=== PATIENT | female | born 1985 | race Caucasian/White ===

== ENCOUNTER → 2017-05-11 | Outpatient (CLI) | payer BC | END | disposition home or self-care (01) | LOC: LABWHC1 09:35 | PROVIDERS: ATTEND Internal Medicine Endocrinology, Diabetes & Metabolism | DX: E03.8 Other specified hypothyroidism (principal) | CPT/HCPCS: 36415; 84443 ==

== ENCOUNTER → 2017-09-08 | Outpatient (CLI) | payer BC ==
--- NOTE | 2017-09-08 09:50 | USB ---
Reason for exam: clinical finding. Indicated problem(s): lump or thickening in the right breast. Physical Findings: Nurse Summary: 1cm superficial nodule right breast 5 o'clock (nurse mj). US Breast RT Right breast ultrasound includes all four quadrants, the retroareolar region and axilla. Finding demonstrates a 13 x 8 x 4mm solid, hypoechoic, superficial, vascular lesion at 6 o'clock. Maybe post traumatic. Early infection not excluded. Follow up in 2 weeks. These results were verbally communicated with the patient and result sheet given to the patient on 09/08/17. ASSESSMENT: Probably benign, BI-RAD 3 RECOMMENDATION: Ultrasound of the right breast in 1 month. (2 weeks) Manage patient on a clinical basis.
== END | disposition home or self-care (01) ==
LOC: RADUSWWP 08:50
PROVIDERS: ATTEND Surgery
DX: N63.10 Unspecified lump in the right breast, unspecified quadrant (principal)

== ENCOUNTER 2017-09-28 08:16 | Inpatient (IN) | payer BC ==
[2017-09-28] MEDS ORDERED: ceFAZolin IN SWFI 2 GM/20 ML SYRINGE IVP ONE (08:37)
[2017-09-28] MEDS ORDERED: CITRIC ACID-SODIUM CITRATE 15 ML CUP PO ONE (08:37)
[2017-09-28] MEDS: LACTATED RINGERS 1,000 ML IV SCH ×2 (08:59→13:21)
[2017-09-28 09:10] LABS: Glucose,Whole Blood 80 mg/dL (75-99)
[2017-09-28 09:15] LABS: Basophils % (A) 0 %; Eosinophils # (A) 0.1 k/uL (0-0.7); Eosinophils % (A) 1 %; HCT 38.1 % (34.0-46.0); HGB 13.1 gm/dL (11.4-16.0); Lymphocytes # (A) 1.9 k/uL (1.0-4.8); Lymphocytes % (A) 21 %; MCH 30.1 pg (25.0-35.0); MCHC 34.4 g/dL (31.0-37.0); MCV 87.6 fL (80.0-100.0); Mean Platelet Volume 8.4; Monocytes # (A) 0.6 k/uL (0-1.0); Monocytes % (A) 7 %; Neutrophils % (A) 69 %; Platelet Count 169 k/uL (150-450); RBC 4.35 m/uL (3.80-5.40); WBC 8.8 k/uL (3.8-10.6)
[2017-09-28 09:17] VITALS: BMI 34.2
[2017-09-28] MEDS ORDERED: NALBUPHINE 10 MG/ML AMPUL ONE (09:56)
[2017-09-28] MEDS ORDERED: OXYTOCIN 10 UNIT/ML 1 ML VIAL ONE (09:56)
[2017-09-28] MEDS ORDERED: ONDANSETRON 4 MG/2 ML VIAL ONE (09:56)
[2017-09-28] MEDS ORDERED: MORPHINE SULFATE (PF) 0.3 MG/0.3 ML SYR ONE (09:56)
[2017-09-28] MEDS ORDERED: ePHEDrine SULFATE/0.9% NACL/PF 50 MG/5 ML SYRINGE IV ONE (09:56)
--- NOTE | 2017-09-28 10:00 | P.HPOB ---
History of Present Illness H&P Date: 09/28/17 This is a 32-year-old white female 3 para 2001 EDC 10/04/2017 at 39 and one sevenths weeks' gestation. Patient presents today for repeat low transverse section and tubal ligation. Fetus is been active throughout the . She denies uterine contractions or vaginal bleeding. Past medical history is significant for hypothyroidism. Current medications Synthroid 25 MCG's daily, vitamin daily. Past surgical history section 2008, 2011. Sinus surgery and tympanic tubes placed in the ears, adenoidectomy. ALLERGIES none known. Family history is significant for hypertension. Social history patient is , she works with the [employer], she has never been a smoker, she denies alcohol or drug use. Obstetric history is significant for gestational diabetes, on insulin. Blood sugar this morning 80. Blood type O+, rubella status immune. VDRL testing, hepatitis B surface antigen, HIV testing, gonorrhea and chlamydia cultures, Pap smear, urine culture negative. Group B strep cultures negative. On exam this is a pleasant white female, 5 foot 6 inches, 212 pounds, blood pressure 128/83 on admission, patient is afebrile. The general physical exam is within normal limits. The chest is clear in all bales. Extremities reveal no edema. The abdomen is obvious E gravid, 39 cm fundal height. Infant is vertex to Alirio's maneuvers. heart rate consistent with reactive NST. Impression: 39 and one sevenths weeks intrauterine , here for repeat section, tubal ligation, and cord blood collection. Plan: For repeat low transverse section and tubal ligation. All risks benefits and alternatives of the surgery have been reviewed in detail. Review of Systems Negative except as in HPI. Constitutional: Reports as per HPI Past Medical History Past Medical History: GERD/Reflux, Thyroid Disorder Additional Past Medical History / Comment(s): DYSPHAGIA, Gestational Diabetes History of Any Multi-Drug Resistant Organisms: None Reported Past Surgical History: Adenoidectomy, Section Additional Past Surgical History / Comment(s): SINUS SX Past Anesthesia/Blood Transfusion Reactions: Postoperative Nausea & Vomiting ( PONV) Past Psychological History: No Psychological Hx Reported Smoking Status: Never smoker Past Alcohol Use History: Occasional Past Drug Use History: None Reported - Past Family History Brother(s) Family Medical History: Cancer Father Family Medical History: Hypertension Medications and Allergies Home Medications Medication Instructions Recorded Confirmed Type Pnv,Calcium 72/Iron/Folic Acid 1 tab PO DAILY 04/01/17 09/28/17 History [ Plus Tablet] Insulin Aspart [NovoLOG] 0 units SQ ACHS 09/28/17 09/28/17 History Insulin Detemir [Levemir] 14 unit SQ HS 09/28/17 09/28/17 History Allergies Allergy/AdvReac Type Severity Reaction Status Date / Time No Known Allergies Allergy Verified 09/28/17 08:30 Exam - Vital Signs Vital signs: Vital Signs Temp Pulse Resp BP 09/28/17 08:22 97.1 F L 91 18 128/83 Intake and Output 09/27/17 09/28/17 09/28/17 22:59 06:59 14:59 Other: Weight 96.162 kg Patient Weight 09/29/17 06:59 Weight 96.162 kg See dictation under HPI, please. Results Result Diagrams: 09/28/17 08:55 Assessment and Plan Plan: For repeat low transverse section, tubal ligation, and cord blood collection. All risks benefits and alternatives of the procedure have been discussed in detail. Blood sugar on admission 80. Time with Patient: Less than 30
[2017-09-28] MEDS ORDERED: diphenhydrAMINE 50 MG CAP PO PRN (10:50)
[2017-09-28] MEDS ORDERED: Acetaminophen-Codeine 300-30mg TAB PO PRN (10:50)
[2017-09-28] MEDS ORDERED: ZOLPIDEM 5 MG TAB PO PRN (10:50)
[2017-09-28] MEDS ORDERED: ONDANSETRON 4 MG/2 ML VIAL IVP PRN (10:50)
[2017-09-28] MEDS ORDERED: NALOXONE 0.4 MG/ML 1 ML VIAL IV PRN (10:50)
[2017-09-28] MEDS ORDERED: diphenhydrAMINE 25 MG CAP PO PRN (10:50)
[2017-09-28] MEDS ORDERED: ACETAMINOPHEN TAB 325 MG TAB PO PRN (10:50)
[2017-09-28] MEDS ORDERED: METOCLOPRAMIDE 5 MG/ML 2 ML VIAL IVP PRN (10:50)
[2017-09-28] MEDS ORDERED: diphenhydrAMINE 50 MG/ML 1 ML VIAL IVP PRN ×2 (10:50)
--- NOTE | 2017-09-28 10:50 | P.OP ---
Date of Procedure: 09/28/17 Preoperative Diagnosis: 39-1/7 weeks intrauterine , 2 previous C-sections declining , undesired fertility, gestational diabetes Postoperative Diagnosis: Liveborn male infant, nuchal cord 1, very thin lower uterine segment Procedure(s) Performed: Repeat low transverse section, tubal ligation, cord blood collection per commercial kit. Anesthesia: spinal Surgeon: Anitha So Fuel Cell Engineer #1: Bronwyn Burgess Estimated Blood Loss (ml): 400 IV fluids (ml): 1,000 Urine output (ml): 50 Pathology: other (Placenta) Condition: stable Disposition: PACU Operative Findings: Liveborn male , nuchal cord 1, normal appearing tubes and ovaries bilaterally. Thin lower uterine segment. Description of Procedure: Patient is brought to the [facility] and suite where a spinal analgesia is administered. She's placed in the dorsal lithotomy position with left lateral uterine displacement. Bicitra is given. Antibiotics given. Desai placed to direct drainage. The appropriate timeout is performed to assure the proper patient and procedural identification. The abdomen is prepped and draped in the usual sterile fashion. The analgesia is checked and noted to be adequate. A repeat low transverse skin incision is made in this is carried down through the subcutaneous tissue to the fascia. Subcutaneous tissue is approximate 6-8 cm deep. Fascia is isolated, scored, and extended bilaterally with curved Patel scissors. Peritoneum is next identified and incised, there is no bowel or bladder involvement. Bladder flap is created using Metzenbaum scissors and at all times the bladder is Well from the operative field. The lower uterine segment is very very thin. It is opened with a scalpel and artificial amniorrhexis reveals clear fluid. The incision is extended bluntly. The 's head is delivered occiput anterior. There is a nuchal cord 1 that is reduced. The patient is officially delivered of a liveborn male at 1014 hrs. The umbilical cord is doubly clamped and ligated, he is handed to waiting nurses for evaluation where scores of 9 and 10 at one and 5 minutes respectively are given. Cord blood was then collected per instructions of the feed crusher operator's. This is set aside. The placenta is delivered manually, it is inspected and noted to be intact with trivascular cord at 1015 hrs. The uterus is then externalized and massaged. It is swept clean with a sterile sponge to avoid any retained products of conception. The uterus is closed in a single full-thickness fashion using 0 Vicryl suture for excellent reapproximation. Patient's request for bilateral tubal ligation is once again verified. Filshie clips are used in the isthmic portions of both tubes, with care to traverse the entire diameter of the tube into the mesal salpinx. Fimbriated ends are identified for proper placement technique. Both ovaries appear normal to inspection. Abdomen is suctioned with suction on guard behind the uterus and the uterus is gently placed back into the abdominal cavity. Bilateral gutters are inspected and cleaned. The uterine incision is clean and dry, well approximated. The peritoneum was allowed to close by secondary intention. The fascia is closed in a running fashion using 0 Vicryl suture with over ligation in the midline. Subcutaneous tissue is irrigated, noted to be clean and dry. It is reapproximated with 3-0 Vicryl in a running fashion. 4 -0 undyed Monocryl is used in a subcuticular manner for final skin closure. Steri-Strips and Mastisol are applied to the wound. Desai is noted to be draining clear urine, 50 mL's. All sponge needle and enhancement counts are correct at the end of the procedure. Patient is brought back to the recovery room in very good condition with stable vital signs including a pulse of 80, blood pressure 118/59. And her are requesting circumcision further infant son.
[2017-09-28] MEDS ORDERED: LACTATED RINGERS 1,000 ML IV SCH (11:00)
[2017-09-28] MEDS: KETOROLAC 30 MG/ML 1 ML VIAL IVP PRN ×2 (11:05→16:41)
[2017-09-28 11:13] LABS: Glucose,Whole Blood 76 mg/dL (75-99)
[2017-09-28] MEDS: SENNOSIDES-DOCUSATE SODIUM 1 EACH TAB PO SCH (20:17)
[2017-09-29] MEDS: KETOROLAC 30 MG/ML 1 ML VIAL IVP PRN ×2 (04:04→11:04)
--- NOTE | 2017-09-29 06:55 | P.PN ---
Subjective Progress Note Date: 09/29/17 Slept well, minimal pain, minimal to moderate lochia rubra. No complaints. Objective - Vital Signs Vital signs: Vital Signs Temp 98.2 F 09/29/17 04:00 Pulse 55 L 09/29/17 04:00 Resp 16 09/29/17 04:00 BP 110/62 09/29/17 04:00 Pulse Ox 97 09/29/17 00:00 Intake & Output 09/28/17 09/28/17 09/29/17 06:59 18:59 06:59 Intake Total 1000 Output Total 550 300 Balance 450 -300 Weight 96.162 kg Intake: IV 1000 Output: Urine 300 300 Emesis 250 Other: # Voids 1 - Constitutional General appearance: Present: average body habitus, cooperative - EENT Eyes: Present: PERRLA ENT: Present: hearing grossly normal - Neck Neck: Present: normal ROM Thyroid: bilateral: normal size - Respiratory Respiratory: bilateral: CTA - Cardiovascular Rhythm: regular - Gastrointestinal Gastrointestinal Comment(s): Incision clean and dry, intact, Steri-Strips applied. Non-erythematous, no drainage. Fundus firm, midline, symmetric, 18 week size. General gastrointestinal: Present: normal bowel sounds - Integumentary Integumentary: Present: normal - Neurologic Neurologic: Present: CNII-XII intact - Musculoskeletal Musculoskeletal: Present: gait normal, strength equal bilaterally - Psychiatric Psychiatric: Present: A&O x's 3, appropriate affect, intact judgment & insight - Labs CBC & Chem 7: 09/28/17 08:55 Assessment and Plan Plan: Advance diet. Discontinue IV. May shower. Circumcision now. Likely discharge home tomorrow. Time with Patient: Less than 30
--- NOTE | 2017-09-29 07:40 | P.PN ---
Progress Note - Text 09/29 716am 32-year-old female status post . Postop day 1 with a VAS of 3, complain of mild facial pruritus, no nausea vomiting today. Doing well
[2017-09-29] MEDS: SENNOSIDES-DOCUSATE SODIUM 1 EACH TAB PO SCH ×2 (08:19→20:39)
[2017-09-29 08:32] LABS: Basophils % (A) 0 %; Eosinophils # (A) 0.1 k/uL (0-0.7); Eosinophils % (A) 1 %; HCT 33.1 % (34.0-46.0); HGB 11.4 gm/dL (11.4-16.0); Lymphocytes # (A) 1.6 k/uL (1.0-4.8); Lymphocytes % (A) 14 %; MCH 30.7 pg (25.0-35.0); MCHC 34.4 g/dL (31.0-37.0); MCV 89.3 fL (80.0-100.0); Mean Platelet Volume 8.3; Monocytes % (A) 8 %; Neutrophils % (A) 76 %; Platelet Count 139 k/uL (150-450); RBC 3.71 m/uL (3.80-5.40); RDW 13.9 % (11.5-15.5); WBC 11.8 k/uL (3.8-10.6)
[2017-09-29] MEDS: IBUPROFEN 600 MG TAB PO PRN ×2 (16:07→23:58)
[2017-09-29] MEDS: SIMETHICONE 80 MG CHEWABLE PO PRN (20:39)
[2017-09-29] MEDS ORDERED: SIMETHICONE 80 MG CHEWABLE PO SCH (22:00)
[2017-09-30] MEDS: SIMETHICONE 80 MG CHEWABLE PO PRN (07:53)
[2017-09-30] MEDS: IBUPROFEN 600 MG TAB PO PRN (07:53)
--- NOTE | 2017-09-30 08:00 | P.DS ---
Providers Date of admission: 09/28/17 08:16 Expected date of discharge: 09/30/17 Attending physician: Anitha So Primary care physician: [facility] Course: This is a 32-year-old white female 3 para 2002 EDC 10/04/2017 at 39 and one sevenths weeks' gestation. Patient presented for repeat low transverse section and tubal ligation. She had 2 previous sections and declined the option for . was remarkable for gestational diabetes on insulin. Admitting blood sugar 80. Group B strep cultures negative , please see my dictated history and physical for full details. Patient underwent a low-transverse section with tubal ligation utilizing Filshie clips. Estimated blood loss was 400 mL's. There was a nuchal cord 1, liveborn male infant with scores of 9 and 10 at one and 5 minutes respectively. Infant weight 3620 g or 8 lbs. 0 oz. Please see my dictated operative note for details. This morning the patient is doing well. She is voiding, ambulating, passing flatus without difficulty. Incision is clean and dry, intact with Steri-Strips applied. Fundus is firm and in the midline, symmetric, 18 week size. Extremities reveal no edema. Chest is clear in all bales. Breasts are not engorged. Breast-feeding is going well. Circumcision on the has been performed. Patient is being discharged home today in very good condition. She will follow- up with me in the office in 2 weeks for incision check. I have reminded her no intercourse, tampons or douching. She will use [id number] ibuprofen products, 200 mg pills, 3 every 6 hours as needed for pain. I've asked her to call me with any fevers shakes or chills, foul smelling or copious lochia, with any pain not alleviated by ibuprofen products, with any difficulties breathing or with any concerns. will follow-up with mathematician as recommended. Patient Condition at Discharge: Good Plan - Discharge Summary New Discharge Prescriptions: No Action Pnv,Calcium 72/Iron/Folic Acid [ Plus Tablet] 1 tab PO DAILY Insulin Detemir [Levemir] 14 unit SQ HS Insulin Aspart [NovoLOG] 0 units SQ ACHS Discharge Medication List Pnv,Calcium 72/Iron/Folic Acid [ Plus Tablet] 1 tab PO DAILY 04/01/17 [ History] Insulin Aspart [NovoLOG] 0 units SQ ACHS 09/28/17 [History] Insulin Detemir [Levemir] 14 unit SQ HS 09/28/17 [History] Follow up Appointment(s)/Referral(s): Anitha So MD [STAFF PHYSICIAN] - 2 Weeks
[2017-09-30 08:46] VITALS: BP 130/72; PULSE 70; RESP 18; TEMP 98.1
[2017-09-30] MEDS: SENNOSIDES-DOCUSATE SODIUM 1 EACH TAB PO SCH (10:05)
== END 2017-09-30 11:59 | disposition home or self-care (01) | DRG 766 ==
LOC: 4FBP 08:16
PROVIDERS: ADMIT Obstetrics & Gynecology; ATTEND Obstetrics & Gynecology
PROC: 0UL70CZ Occlusion of Bilateral Fallopian Tubes with Extraluminal Device, Open Approach (ICD-10-PCS; 2017-09-28)
PROC: 00HU33Z Insertion of Infusion Device into Spinal Canal, Percutaneous Approach (ICD-10-PCS; 2017-09-28)
PROC: 3E0R3NZ Introduction of Analgesics, Hypnotics, Sedatives into Spinal Canal, Percutaneous Approach (ICD-10-PCS; 2017-09-28)
PROC: 10D00Z1 Extraction of Products of Conception, Low, Open Approach (ICD-10-PCS; principal; 2017-09-28 10:00)
DX: O34.211 Maternal care for low transverse scar from previous cesarean delivery (principal); O24.424 Gestational diabetes mellitus in childbirth, insulin controlled; E03.9 Hypothyroidism, unspecified; O69.81X0 Labor and delivery complicated by cord around neck, without compression, not applicable or unspecified; O99.284 Endocrine, nutritional and metabolic diseases complicating childbirth; Z37.0 Single live birth; Z3A.39 39 weeks gestation of pregnancy; Z90.89 Acquired absence of other organs; Z79.899 Other long term (current) drug therapy; Z82.49 Family history of ischemic heart disease and other diseases of the circulatory system; Z80.9 Family history of malignant neoplasm, unspecified; Z79.4 Long term (current) use of insulin
CPT/HCPCS: 85025; 86850; 86900; 86901; 88307

== ENCOUNTER → 2018-02-05 | Outpatient (CLI) | payer BC ==
--- NOTE | 2018-02-08 07:25 | USB ---
Reason for exam: clinical finding. Indicated problem(s): palpable abnormality in the right breast. Physical Findings: Nurse Summary: right breast inner lower quadrant area with a stitch in a place, with small redness (nurse ts). US Breast RT Right complete breast ultrasound includes all four quadrants, the retroareolar region and axilla. Finding demonstrates a 1.5 x 1.7 x 0.4cm oval, mixed, hypoechoic lesion at 5 o'clock at location of prior ultrasound abnormality at site of recent dermatology biopsy. These results were verbally communicated with the patient and result sheet given to the patient on 02/05/18. ASSESSMENT: Probably benign, BI-RAD 3 RECOMMENDATION: Clinical management of the right breast. Manage on a clinical basis. Correlate with dermal biopsy results.
== END | disposition home or self-care (01) ==
LOC: RADUSWWP 12:55
PROVIDERS: ATTEND Obstetrics & Gynecology
DX: N60.01 Solitary cyst of right breast (principal)

== ENCOUNTER → 2018-03-03 | Outpatient (CLI) | payer BC ==
--- NOTE | 2018-03-04 07:31 | US ---
EXAMINATION TYPE: US thyroid st tissue head/neck DATE OF EXAM: 03/03/2018 COMPARISON: CT 2012 CLINICAL HISTORY: E01.0 Thyroidmeagaly. Enlarged thyroid per physician, intermittent difficultly swal lowing, off thyroid meds since August GLAND SIZE: Right Lobe: 6.8 x 3.1 x 2.8 cm Overall Parenchyma: heterogenous Left Lobe: 6.6 x 2.7 x 3.1 cm Overall Parenchyma: heterogeneous Isthmus Thickness: 1.5 cm NODULES RIGHT: # of nodules measured on right: 0 LEFT: # of nodules measured on left: 0 ISTHMUS: # of nodules measured in the isthmus: 0 Bilateral neck scanned, no evidence of lymphadenopathy. Enlarged, hypervascular and heterogeneous gland without any definite nodules seen at this time. IMPRESSION: Enlarged, hypervascular and diffusely heterogenous thyroid gland without discrete nodule. Correlate w ith serum laboratory values for thyroiditis.
== END | disposition home or self-care (01) ==
LOC: RADUSMAIN 15:50
PROVIDERS: ATTEND Family Medicine
DX: E04.9 Nontoxic goiter, unspecified (principal)
CPT/HCPCS: 76536

== ENCOUNTER → 2018-03-05 | Outpatient (CLI) | payer BC ==
[2018-03-08 13:08] LABS: Cow's Milk IgE Class CLASS 0; Egg White IgE <0.35 kU/L (<0.35); Peanut IgE <0.35 kU/L (<0.35); Potato IgE <0.35 kU/L (<0.35); Potato IgE Class CLASS 0; Soybean IgE <0.35 kU/L (<0.35)
[2018-03-08 14:17] LABS: Avocado Class CLASS 0; Banana IgE Class CLASS 0; Hazelnut IgE <0.35 kU/L (<0.35); Hazelnut IgE Class CLASS 0; Kiwi IgE <0.35 kU/L (<0.35)
[2018-03-08 15:30] LABS: Corn IgG 4.1 mcg/mL (< 2.0); Cow's Milk IgG 87.3 mcg/mL (< 2.0); Peanut IgG 9.1 mcg/mL (< 2.0); Potato IgG < 2.0 mcg/mL (< 2.0); Soybean IgG 2.7 mcg/mL (< 2.0); Tomato IgG < 2.0 mcg/mL (< 2.0); Wheat IgG 11.6 mcg/mL (< 2.0)
== END | disposition home or self-care (01) ==
LOC: LABWHC1 09:59
PROVIDERS: ATTEND Nurse Practitioner Family
DX: J30.89 Other allergic rhinitis (principal)
CPT/HCPCS: 36415; 86001; 86003

== ENCOUNTER → 2018-04-06 | Day surgery (SDC) | payer BC ==
[2018-04-02 11:32] VITALS: BMI 31.4
[~2018-04-06] MED LIST: LACTATED RINGERS 1,000 ML IV SCH; LIDOCAINE 1% 20 ML VIAL (10MG/ML) FOR IV START INTRADERMA PRN; MIDAZOLAM 2 MG/2 ML VIAL IV PRN
[2018-04-06 07:26] VITALS: RESP 16; TEMP 98.3
--- NOTE | 2018-04-06 08:00 | P.GSHP ---
History of Present Illness H&P Date: 04/06/18 Chief Complaint: GERD This is a 33-year-old female who presents today for EGD. Patient's had issues with GERD. Past Medical History Past Medical History: GERD/Reflux, Thyroid Disorder Additional Past Medical History / Comment(s): DYSPHAGIA and difficulty taking deep breaths, Gestational Diabetes,Keith's,enlarged thyroid-hypoactive,mild tricuspid valve regurg,palpitations,steroids February 2018,kidney stones February 2018 History of Any Multi-Drug Resistant Organisms: None Reported Past Surgical History: Adenoidectomy, Section Additional Past Surgical History / Comment(s): SINUS SX,c section x3 Past Anesthesia/Blood Transfusion Reactions: Postoperative Nausea & Vomiting ( PONV) Smoking Status: Never smoker - Past Family History Brother(s) Family Medical History: Cancer Father Family Medical History: Hypertension Medications and Allergies Home Medications Medication Instructions Recorded Confirmed Type Levothyroxine Sodium [Synthroid] 88 mcg PO QAM 04/02/18 04/06/18 History Pantoprazole Sodium [Protonix] 40 mg PO DAILY 04/02/18 04/06/18 History Ranitidine HCl [Zantac] 150 mg PO BID 04/02/18 04/06/18 History Allergies Allergy/AdvReac Type Severity Reaction Status Date / Time No Known Allergies Allergy Verified 04/06/18 07:08 Surgical - Exam Vital Signs Temp Pulse Resp BP Pulse Ox 98.3 F 85 16 124/85 100 04/06/18 07:24 04/06/18 07:24 04/06/18 07:24 04/06/18 07:24 04/06/18 07:24 - General well developed, no distress - Eyes PERRL - ENT normal pinna - Neck no masses - Respiratory normal expansion - Cardiovascular Rhythm: regular - Abdomen Abdomen: soft, non tender Assessment and Plan Assessment: GERD. We'll perform EGD.
--- NOTE | 2018-04-06 08:08 | P.OP ---
Date of Procedure: 04/06/18 Preoperative Diagnosis: GERD Postoperative Diagnosis: Antral gastritis Procedure(s) Performed: EGD Anesthesia: MAC Surgeon: Ho Castellon Pathology: other (Antrum) Condition: stable Disposition: PACU Description of Procedure: The patient's placed on the endoscopy table in the lateral position. She received IV sedation. The gastroscope placed oropharynx passed in the esophagus and stomach. Scope was then placed through the pylorus. First and second portion of the duodenum appeared normal. Scope was then brought back the antrum and this appeared mildly inflamed. A biopsies performed. The scope was then retroflexed and the remainder stomach appeared normal. There was no significant hiatal hernia. The GE junction was at 40 cm. The distal esophagus Appeared Normal. Scope was withdrawn for patient.
[2018-04-06 08:49] VITALS: BP 131/72; PULSE 80
--- NOTE | 2018-04-06 11:21 | NM ---
Nuclear medicine hepatobiliary scan. HISTORY: Pain. DOSAGE: The patient received 8 ounces of ensure plus and 5.14 mCi of Technetium 99m Choletec. FINDINGS: There is normal hepatic extraction. The gallbladder is seen by 15 minutes. There is bilia ry to bowel clearance by 35 minutes. Ejection fraction is 58%. IMPRESSION: 1. Normal hepatobiliary exam
== END | disposition home or self-care (01) ==
LOC: ORWHC2ENDO 06:49
PROVIDERS: ATTEND Surgery
DX: K21.9 Gastro-esophageal reflux disease without esophagitis (principal); K29.70 Gastritis, unspecified, without bleeding; E06.3 Autoimmune thyroiditis; Z79.890 Hormone replacement therapy; Z79.899 Other long term (current) drug therapy; Z82.49 Family history of ischemic heart disease and other diseases of the circulatory system; Z80.9 Family history of malignant neoplasm, unspecified
CPT/HCPCS: 43239; 81025; 88305; 78227; A9537; J2805

== ENCOUNTER → 2019-06-29 | Outpatient (CLI) | payer BC ==
--- NOTE | 2019-06-29 11:18 | MM ---
Reason for exam: clinical finding. Baseline mammogram. History: Family history of breast cancer in 2 maternal aunts. Physical Findings: Nurse did not find any significant physical abnormalities on exam. MG 3D Diag Mammo W/Cad OLGA Bilateral CC and MLO view(s) were taken. The breast tissue is heterogeneously dense. This may lower the sensitivity of mammography. No suspicious abnormality. These results were verbally communicated with the patient and result sheet given to the patient on 06/29/19. ASSESSMENT: Negative, BI-RAD 1 RECOMMENDATION: Routine screening mammogram of both breasts at age 38. (or sooner if clinically indicated)
--- NOTE | 2019-06-29 11:19 | USB ---
Reason for exam: clinical finding. History: Family history of breast cancer in 2 maternal aunts. US Breast Limited RT Right limited breast ultrasound including focal area of concern, retroareolar and axilla demonstrates no cystic or solid lesion seen. Dense fibroglandular tissue noted. These results were verbally communicated with the patient and result sheet given to the patient on 06/29/19. ASSESSMENT: Negative, BI-RAD 1 RECOMMENDATION: Routine screening mammogram of both breasts at age 38. (or sooner if clinically indicated)
== END | disposition home or self-care (01) ==
LOC: RADMAMWWP 09:04
PROVIDERS: ATTEND Obstetrics & Gynecology
DX: N64.4 Mastodynia (principal)
CPT/HCPCS: 77062; 77066

== ENCOUNTER → 2019-06-29 | Outpatient (CLI) | payer BC ==
[2019-06-29 16:07] LABS: African American GFR (CKD) 129.2 (60.0-200.0); Albumin 4.4 g/dL (3.80-4.90); Albumin/Globulin Ratio 2.1 (1.60-3.17); Anion Gap 8.9 mmol/L (4.00-12.00); BUN/Creat Ratio 22.86 Ratio (12.00-20.00); Calcium 8.9 mg/dL (8.7-10.3); Carbon Dioxide 25.1 mmol/L (21.6-31.8); Chol/HDL Ratio 2.72; Globulin 2.1 g/dL (1.6-3.3); LDL Cholesterol,Calculated 79.4 mg/dL (0.0-131.0); Non-African American GFR(CKD) 111.5 (60.0-200.0); Potassium 4.2 mmol/L (3.5-5.5); Total Bilirubin 0.6 mg/dL (0.3-1.2); Total Protein 6.5 g/dL (6.2-8.2); VLDL Calculation 18.6 mg/dL (5.00-40.00)
[2019-06-29 16:17] LABS: T4, Free (Free Thyroxine) 1.1 ng/dL (0.80-1.80)
== END | disposition home or self-care (01) ==
LOC: LABWHC1 10:40
PROVIDERS: ATTEND Chiropractor
DX: E03.9 Hypothyroidism, unspecified (principal); E78.5 Hyperlipidemia, unspecified
CPT/HCPCS: 36415; 80053; 80061; 82306; 84439; 84443; 84481

== ENCOUNTER → 2023-06-19 | Outpatient (CLI) | payer BC ==
--- NOTE | 2023-06-23 18:34 | MM ---
Reason for Exam: Screening (asymptomatic). Last mammogram was performed 4 year(s) and 0 month(s) ago. Patient History: Menarche at age 11. First Full-Term at age 23. Maternal aunt had breast cancer, age 65. Risk Values: Yoanna 5 year model risk: 0.6%. NCI Lifetime model risk: 11.1%. Prior Study Comparison: 06/29/2019 Bilateral Diagnostic Mammogram, [facility]. Tissue Density: There are scattered fibroglandular densities. Findings: Analyzed By CAD. There is no suspicious group of microcalcifications or new suspicious mass in either breast. Overall Assessment: Negative, BI-RAD 1 Management: Screening Mammogram of both breasts in 1 year. . Patient should continue monthly self-breast exams. A clinical breast exam by your physician is recommended on an annual basis. This exam should not preclude additional follow-up of suspicious palpable abnormalities. Note on Yoanna scores and lifetime risk: 1. A Yoanna score greater than 3% is considered moderate risk. If this is the case, consider specialist referral to assess eligibility for a risk reducing agent. 2. If overall lifetime risk for the development of breast cancer is 20% or higher, the patient may qualify for future screening with alternating mammogram and breast MRI. Electronically signed and approved by: Cipriano Cummings M.D. Radiologist
== END | disposition home or self-care (01) ==
LOC: RADMAMWWP 10:38
PROVIDERS: ATTEND Obstetrics & Gynecology
DX: Z12.31 Encounter for screening mammogram for malignant neoplasm of breast (principal); Z80.3 Family history of malignant neoplasm of breast
CPT/HCPCS: 77063; 77067

== ENCOUNTER → 2024-09-16 | Outpatient (CLI) | payer BC ==
--- NOTE | 2024-09-16 14:27 | MM ---
Reason for Exam: Screening (asymptomatic). Last mammogram was performed 1 year(s) and 2 month(s) ago. Patient History: Menarche at age 11. First Full-Term at age 23. Premenopausal. Maternal aunt had breast cancer, age 65. Risk Values: Yoanna 5 year model risk: 0.7%. NCI Lifetime model risk: 11.0%. Prior Study Comparison: 06/29/2019 Bilateral Diagnostic Mammogram, [facility]. 06/19/2023 Bilateral MG 3D screening mammo w/cad, [facility]. Tissue Density: There are scattered areas of fibroglandular density. Findings: Analyzed By CAD. Right breast: There is no suspicious group of microcalcifications or new suspicious mass. Left breast: There is no suspicious group of microcalcifications or new suspicious mass. Overall Assessment: Negative, BI-RAD 1 Management: Screening Mammogram of both breasts in [address] [facility] will attempt to contact patient to return for supplemental views and ultrasound if indicated. Patient should continue monthly self-breast exams. A clinical breast exam by your physician is recommended on an annual basis. This exam should not preclude additional follow-up of suspicious palpable abnormalities. Note on Yoanna scores and lifetime risk: 1. A Yoanna score greater than 3% is considered moderate risk. If this is the case, consider specialist referral to assess eligibility for a risk reducing agent. 2. If overall lifetime risk for the development of breast cancer is 20% or higher, the patient may qualify for future screening with alternating mammogram and breast MRI. [facility], , 09/16/2024 1:48 PM. Electronically signed and approved by: Marcelo Mackay DO
== END | disposition home or self-care (01) ==
LOC: RADMAMWWP 12:49
PROVIDERS: ATTEND Obstetrics & Gynecology Obstetrics
DX: Z12.31 Encounter for screening mammogram for malignant neoplasm of breast (principal); R92.323 Mammographic fibroglandular density, bilateral breasts; Z80.3 Family history of malignant neoplasm of breast
CPT/HCPCS: 77063; 77067